=== PATIENT | male | born 1945 | race Caucasian/White ===

== ENCOUNTER 2018-04-02 07:56 | Emergency (ER) | payer OTHER, SELFPAY ==
[2018-04-02 08:10] VITALS: BP 125/54; PULSE 94; RESP 18; TEMP 36.6; O2SAT 93
--- NOTE | 2018-04-02 08:19 | DI.RAD.S_ITS ---
PROCEDURE: XR ACUTE ABDOMEN SERIES INDICATIONS: Abdominal pain TECHNIQUE: One view chest and two views of the abdomen were acquired. COMPARISON: [facility], CT, CT IVP, 09/03/2017, 15:06. FINDINGS: Surgical changes and devices: Prior cholecystectomy. Chest: Lungs are clear. Heart size is normal. No pleural effusions. No pneumoperitoneum. Abdomen: Bowel gas pattern is normal. There are bilateral lower third renal collecting system region suspicious calcifications measuring 4 mm each, but a ureteral stone is not found. Visualized solid organ contours appear normal. Bones: No suspicious bony lesions. IMPRESSION: Mildly reduced inspiratory volume, several small calcifications overlie the expected region of the lower third collecting system of each kidney, each measuring approximately 4 mm in diameter. A ureteral stone is not found but depending on the clinical status followup by CT scanning may become necessary. Dictated by: Kashmir Hernandez M.D. on 04/02/2018 at 8:40 Approved by: Kashmir Hernandez M.D. on 04/02/2018 at 8:41
--- NOTE | 2018-04-02 08:21 | ED.ABDPAIN ---
HPI - Abdominal Pain General Chief Complaint: Nausea/Vomiting/Diarrhea Stated Complaint: FLU LIKE SYMPTOMS Time Seen by Provider: 04/02/18 08:00 Source: patient and family Mode of arrival: ambulatory Limitations: no limitations History of Present Illness HPI narrative: 72-year-old male with extensive medical history presents to the emergency department with 5 days of generalized weakness, nausea, diarrhea as well as subjective fever, fatigue and chest and abdominal pain. He denies provocation or palliation of his symptoms. He denies exposure to bad food, recent travel, antibiotics or ill persons. He denies chest pain or shortness of breath. He denies any recent change in medications or diet. MD complaint: abdominal pain Onset (ago): day(s) Pain Consistency: constant Location: diffuse Severity: moderate Quality: cramping Radiation: none Migration to: no migration Relieving factors: nothing Exacerbating factors: nothing Associated symptoms: nausea, diarrhea and fever Related Data Home Medications Medication Instructions Recorded Confirmed albuterol sulfate 2 puff INHALATION Q4-6H PRN 04/02/18 04/02/18 apixaban 5 mg PO BID 04/02/18 04/02/18 aspirin [Aspirin Low Dose] 81 mg PO DAILY 04/02/18 04/02/18 atorvastatin 40 mg PO DAILY 04/02/18 04/02/18 brimonidine 04/02/18 cholecalciferol (vitamin D3) 1,000 unit PO DAILY 04/02/18 04/02/18 doxazosin 8 mg PO DAILY 04/02/18 04/02/18 duloxetine 60 mg PO DAILY 04/02/18 04/02/18 ferrous sulfate [iron] 325 mg PO DAILY 04/02/18 04/02/18 hydrocodone-acetaminophen [Vicodin 1 tab PO Q4-6H PRN 04/02/18 04/02/18 HP] insulin glargine 04/02/18 lisinopril 20 mg PO BID 04/02/18 04/02/18 lorazepam [Ativan] 0.5 mg PO PRN PRN 04/02/18 04/02/18 metformin 1,000 mg PO BID 04/02/18 04/02/18 pantoprazole [Protonix] 40 mg PO BID 04/02/18 04/02/18 pregabalin [Lyrica] 75 mg PO TID 04/02/18 04/02/18 sucralfate 1 g PO BID 04/02/18 04/02/18 vitamin B complex 1 cap PO DAILY 04/02/18 04/02/18 warfarin 10 mg PO DAILY 04/02/18 04/02/18 Allergies Allergy/AdvReac Type Severity Reaction Status Date / Time latex Allergy Mild Verified 04/02/18 08:19 Review of Systems Review of Systems All systems reviewed & are unremarkable except as noted in HPI and below Constitutional Reports chills, Reports fatigue, Reports fever(s), Denies lethargy and Reports weakness Eyes Denies change in vision, Denies eye discharge, Denies irritation and Denies loss of vision ENT Ears, Nose, Mouth, and Throat: Denies change in voice, Denies neck pain and Denies sore throat Cardiovascular Denies chest pain, Denies irregular heart rhythm, Denies lightheadedness, Denies palpitations, Denies dyspnea, Denies dyspnea on exertion and Denies orthopnea Respiratory Denies cough, Denies dyspnea, Denies dyspnea on exertion and Denies wheezing Gastrointestinal Gastrointestinal: Reports abdominal pain, Denies change in bowel habits, Reports diarrhea, Reports nausea and Denies vomiting Genitourinary Denies hematuria, Denies flank pain, Denies urinary incontinence and Denies urinary urgency Musculoskeletal Denies neck pain Integumentary/Breasts Denies pruritus, Denies erythema, Denies rash and Denies wounds Neurologic Denies confusion, Denies loss of vision and Reports weakness Psychiatric Denies anxiety, Denies confusion, Denies depression, Denies homicidal ideation and Denies suicidal ideation Endocrine Reports fatigue and Denies palpitations Hematologic/Lymphatic Denies easy bruising Allergic/Immunologic Denies wheezing PFSH Medical History Hypercholesteremia (Acute) Hypertension (Acute) Kidney stone (Acute) Glaucoma (Acute) Cataracts, bilateral (Acute) Neck pain (Acute) Pulmonary embolism (Acute) DVT (deep venous thrombosis) (Acute) Arthritis (Acute) Edema (Acute) Umbilical hernia (Acute) Factor 5 Leiden mutation, heterozygous (Acute) Chronic pain (Acute) Diabetes (Acute) Neuropathy (Acute) Fibromyalgia (Acute) Closed left arm fracture (Acute) History of TIAs (Acute) Lipoma of back (Acute) MRSA (methicillin resistant staph aureus) culture positive (Acute) Surgical History H/O hernia repair (Acute) History of facial surgery (Acute) History of surgery on arm (Acute) Hx laparoscopic cholecystectomy (Acute) Social History Smoking Status: Never smoker Exam Narrative Exam Narrative: A 72-year-old male appears generally unwell Initial Vital Signs Initial Vital Signs: Vital Signs Temperature 97.9 F 04/02/18 08:10 Pulse Rate 94 H 04/02/18 08:10 Respiratory Rate 18 04/02/18 08:10 Blood Pressure 125/54 H 04/02/18 08:10 Pulse Oximetry 93 04/02/18 08:10 Const General: cooperative, well developed, in distress and ill appearing Nutritional Appearance: well nourished Orientation: alert, awake, oriented x3 and not confused HENMT Head: normocephalic and atraumatic Ears: external ears normal and TM's normal bilaterally Nose: external nose normal and No nasal discharge Face and sinus: sinuses nontender, face symmetric, no sinus tenderness and No dry mucous membranes Mouth: oral mucosae normal and moist mucous membranes Teeth and gingiva: dentition normal Throat: tonsils normal and uvula midline Eyes General: appearance normal, both eyes and all related structures Eyelids: eyelids normal Conjunctivae: conjunctivae normal Sclera: sclerae normal Pupils: PERRL EOM: EOM intact bilaterally Chest Chest: normal inspection of the chest Resp Effort & Inspection: normal respiratory effort, able to speak in complete sentences, no respiratory distress and no use of accessory muscles Auscultation: clear to auscultation bilaterally, no rales, no rhonchi and no wheezes GI Inspection: distended Palpation: soft, no hepatosplenomegaly, No guarding, No pulsatile mass and No tender Auscultation: normal bowel sounds Back/Spine/Pelvis Back: No CVA tenderness Cervical Spine: cervical ROM normal and No pain with cervical ROM Thoracic/Lumbar Spine: thoracic and lumbar spine normal to inspection Neuro General: alert and awake Cognition: normal cognition Speech: speech normal Motor: muscle tone normal throughout Extrem General: full ROM, no clubbing, cyanosis or edema, no pedal edema and no calf tenderness Psych Appearance: grossly normal Mood: congruent mood Affect: normal affect Course Orders Ordered: ED Orders 04/02/18 08:19 XR acute abdomen series Stat EKG-12 Lead Stat 04/02/18 08:40 Complete Blood Count AUTO DIFF Stat Comprehensive Metabolic Panel Stat Lactate (Lactic Acid) Stat Lipase Stat Procalcitonin Stat Prothrombin Time INR Stat Troponin with CK Cardiac Panel Stat 04/02/18 09:14 Blood Culture Stat 04/02/18 10:22 CT abdomen pelvis w con Stat Discontinued Medications Aspirin (Aspirin Chew) 324 mg PO NOW ONE Stop: 04/02/18 08:19 Last Admin: 04/02/18 09:28 Dose: 324 mg Sodium Chloride (Normal Saline 0.9%) 1,000 mls @ 150 mls/hr IV CONT HEMANTH Last Infusion: 04/02/18 10:05 Dose: 0 mls/hr Admin: 04/02/18 09:00 Dose: 150 mls/hr Reevaluation(s) Reevaluation #1: patient feels tremendous relief after fluids Vital Signs - 8 hr 04/02/18 08:10 04/02/18 09:59 04/02/18 10:30 Temperature 97.9 F Pulse Rate 94 H 81 95 H Respiratory Rate 18 14 21 Blood Pressure 125/54 H Blood Pressure [Left Arm] 116/48 L 119/46 L Pulse Oximetry 93 95 04/02/18 11:02 04/02/18 12:00 04/02/18 12:22 Temperature Pulse Rate 82 68 68 Respiratory Rate 18 Blood Pressure 118/54 L Blood Pressure [Left Arm] 124/51 H 118/54 L Pulse Oximetry 94 95 MDM - Abdominal Pain Differential Diagnosis Differential diagnosis: Likely abdominal pain, acute appendicitis, calculus of kidney, constipation, gastroenteritis and small bowel obstruction Medical Records Attestation: I reviewed the patient's medical records. Lab Data Attestation: I reviewed the patient's lab results. Result diagrams: 04/02/18 08:40 04/02/18 08:40 Lab Results 04/02/18 04/02/18 04/02/18 Range/Units 08:40 08:40 08:40 WBC 5.7 (4.5-11.0) X10^3/uL RBC 5.12 (4.5-5.9) X10^6/uL Hgb 13.2 L (13.5-17.5) g/dL Hct 39.4 L (41-53) % MCV 76.9 L (80-100) fL MCH 25.7 L (26-34) PG MCHC 33.4 (30-36) % RDW 17.2 H (11.6-14.8) % Plt Count 174 (150-400) X10^3/uL Neut % (Auto) 73.5 (50-75) % Lymph % (Auto) 14.2 L (25-40) % [place] % (Auto) 11.1 (3-14) % Eos % (Auto) 1.1 L (2-4) % Baso % (Auto) 0.1 (0-2) % Neut # (Auto) 4200 (6559-0243) /uL PT 26.7 H (10.1-12.7) SECONDS INR 2.5 H (0.9-1.3) Sodium 138 (137-145) mmol/L Potassium 3.9 (3.4-5.1) mmol/L Chloride 101 (98-107) mmol/L Carbon Dioxide 22 (22-32) mmol/L BUN 28 H (9-20) mg/dL Creatinine 1.50 H (0.66-1.25) mg/dL Estimated GFR 46.1 L (>60) mL/min BUN/Creatinine Ratio 18.7 (6-22) Glucose 210 H (80-110) mg/dL Lactate (0.7-2.1) mmol/L Calcium 8.9 (8.4-10.2) mg/dL Total Bilirubin 1.0 (0.2-1.3) mg/dL AST 50 (17-59) IU/L ALT 41 (21-72) IU/L Alkaline Phosphatase 89 (38-126) U/L Total Creatine Kinase 49 L (55-170) U/L Troponin I < 0.012 (0.01-0.034) ng/mL Total Protein 7.1 (6.3-8.2) g/dL Albumin 3.9 (3.5-5.0) g/dL Globulin 3.2 (1.7-4.1) g/dL Albumin/Globulin Ratio 1.2 (1.0-2.8) Lipase 249 (23-300) U/L Procalcitonin (<0.5) ng/mL 04/02/18 04/02/18 Range/Units 08:40 08:40 WBC (4.5-11.0) X10^3/uL RBC (4.5-5.9) X10^6/uL Hgb (13.5-17.5) g/dL Hct (41-53) % MCV (80-100) fL MCH (26-34) PG MCHC (30-36) % RDW (11.6-14.8) % Plt Count (150-400) X10^3/uL Neut % (Auto) (50-75) % Lymph % (Auto) (25-40) % [place] % (Auto) (3-14) % Eos % (Auto) (2-4) % Baso % (Auto) (0-2) % Neut # (Auto) (3662-0756) /uL PT (10.1-12.7) SECONDS INR (0.9-1.3) Sodium (137-145) mmol/L Potassium (3.4-5.1) mmol/L Chloride (98-107) mmol/L Carbon Dioxide (22-32) mmol/L BUN (9-20) mg/dL Creatinine (0.66-1.25) mg/dL Estimated GFR (>60) mL/min BUN/Creatinine Ratio (6-22) Glucose (80-110) mg/dL Lactate 1.4 (0.7-2.1) mmol/L Calcium (8.4-10.2) mg/dL Total Bilirubin (0.2-1.3) mg/dL AST (17-59) IU/L ALT (21-72) IU/L Alkaline Phosphatase (38-126) U/L Total Creatine Kinase (55-170) U/L Troponin I (0.01-0.034) ng/mL Total Protein (6.3-8.2) g/dL Albumin (3.5-5.0) g/dL Globulin (1.7-4.1) g/dL Albumin/Globulin Ratio (1.0-2.8) Lipase (23-300) U/L Procalcitonin 0.38 (<0.5) ng/mL Imaging Data Chest x-ray: Attestation: I personally reviewed and interpreted this imaging study as follows: My impression: NAP Radiologist's impression: PROCEDURE: XR ACUTE ABDOMEN SERIES INDICATIONS: Abdominal pain TECHNIQUE: One view chest and two views of the abdomen were acquired. COMPARISON: [facility], CT, CT IVP, 09/03/2017, 15:06. FINDINGS: Surgical changes and devices: Prior cholecystectomy. Chest: Lungs are clear. Heart size is normal. No pleural effusions. No pneumoperitoneum. Abdomen: Bowel gas pattern is normal. There are bilateral lower third renal collecting system region suspicious calcifications measuring 4 mm each, but a ureteral stone is not found. Visualized solid organ contours appear normal. Bones: No suspicious bony lesions. IMPRESSION: Mildly reduced inspiratory volume, several small calcifications overlie the expected region of the lower third collecting system of each kidney, each measuring approximately 4 mm in diameter. A ureteral stone is not found but depending on the clinical status followup by CT scanning may become necessary. Dictated by: Kashmir Hernandez M.D. on 04/02/2018 at 8:40 Approved by: Kashmir Hernandez M.D. on 04/02/2018 at 8:41 CT scan - abdomen: Radiologist's impression: PROCEDURE: CT ABDOMEN PELVIS W CON INDICATIONS: severe abdominal pain, weakness TECHNIQUE: After the administration of intravenous contrast, 5 mm thick sections acquired from the diaphragm to the symphysis. 5 mm coronal and sagittal reformats were acquired. For radiation dose reduction, the following was used: automated exposure control, adjustment of mA and/or kV according to patient size. COMPARISON: None. FINDINGS: Image quality: Excellent. ABDOMEN: Lung bases: Lung bases are clear except for mild posterior lung base scarring and/or atelectasis.. Heart size is normal. Solid organs: Liver is normal in size and enhancement. Gallbladder has been previously resected. Biliary system is non dilated. Pancreas enhances normally. Spleen is normal in size and enhancement. No adrenal nodules. Kidneys demonstrate normal size and enhancement, without hydronephrosis. A 3 x 4 mm calculus is seen nonobstructive within a posterior calyx of the right mid kidney. More inferiorly within the lower third collecting system of the left kidney there is a calculus or cluster of calculi measuring up to 5 mm in AP dimension and 1.8 cm transverse. A small simple appearing exophytic posterior right renal cortical cyst is present, 1.6 cm in maximal dimension Peritoneum and bowel: Bowel loops demonstrate normal wall thickness and caliber. No free fluid or air. Nodes and vessels: No retroperitoneal or mesenteric adenopathy by size criteria. Aorta and inferior vena cava are normal in size. Miscellaneous: No ventral hernias. PELVIS: Genitourinary: Bladder wall thickness is normal. Miscellaneous: No inguinal hernias or adenopathy. Bones: No suspicious bony lesions. No vertebral body compression fractures. IMPRESSION: Prior cholecystectomy. Mild lung base atelectasis or scarring posteriorly. Within the abdomen note is made of several urinary tract stones the largest of which are present at the lower third collecting system of the left kidney and do not appear obstructed. No ureteral calculus is found. A definite source of current symptoms is not seen. Dictated by: Kashmir Hernandez M.D. on 04/02/2018 at 10:59 Approved by: Kashmir Hernandez M.D. on 04/02/2018 at 11:03 ECG Data Attestation: I personally reviewed and interpreted this ECG as follows: Prior ECG tracings: not available for review Interpretation: Normal sinus rhythm at 89 without signs of ectopy or ischemia. No ST segmental elevations or depressions. No T-wave inversions Discharge Plan Departure Patient Disposition: Home, Self-Care Clinical Impression: Acute dehydration, Abdominal pain Discharge Date/Time: 04/02/18 12:24 Interventions: ED Discharge Assessment Last Done: 04/02/18 12:22 Instructions: Acute Abdominal Pain Activity Restrictions/Additional Instructions: 1. Drink plenty of fluids with frequent small sips. 2. For the next 24 hours a clear liquid diet is advised. After that please employ a brat diet which would include bananas, rice, apples, toast. 3. Please take medications as directed. 4. Please follow-up with your doctor in the next 1-2 days. Call the office for an appointment. 5. Please return to the emergency Department for any worsening or persistent symptoms, such as increasing pain or fever. Prescriptions: No Action lisinopril 20 mg Tablet 20 mg PO BID RF: 0 insulin glargine 100 unit/mL Solution RF: 0 sucralfate 1 gram Tablet 1 g PO BID RF: 0 doxazosin 8 mg Tablet 8 mg PO DAILY RF: 0 metformin 1,000 mg Tablet 1,000 mg PO BID RF: 0 brimonidine 0.2 % Drops RF: 0 albuterol sulfate 90 mcg/actuation Hfa Aerosol Inhaler 2 puff INHALATION Q4-6H PRN (Reason: Shortness Of Breath) RF: 0 cholecalciferol (vitamin D3) 1,000 unit Capsule 1,000 unit PO DAILY RF: 0 apixaban 5 mg Tablet 5 mg PO BID RF: 0 atorvastatin 40 mg Tablet 40 mg PO DAILY RF: 0 warfarin 10 mg Tablet 10 mg PO DAILY RF: 0 aspirin [Aspirin Low Dose] 81 mg Tablet,Delayed Release (Dr/Ec) 81 mg PO DAILY RF: 0 lorazepam [Ativan] 0.5 mg Tablet 0.5 mg PO PRN PRN (Reason: Anxiety) RF: 0 pantoprazole [Protonix] 40 mg Tablet,Delayed Release (Dr/Ec) 40 mg PO BID RF: 0 ferrous sulfate [iron] 325 mg (65 mg iron) Tablet 325 mg PO DAILY RF: 0 vitamin B complex Capsule 1 cap PO DAILY RF: 0 hydrocodone-acetaminophen [Vicodin HP] 10-300 mg Tablet 1 tab PO Q4-6H PRN (Reason: pain) RF: 0 duloxetine 60 mg Capsule,Delayed Release(Dr/Ec) 60 mg PO DAILY RF: 0 pregabalin [Lyrica] 75 mg Capsule 75 mg PO TID RF: 0
[2018-04-02 08:57] LABS: Add Manual Diff / Slide Review NO; Basophils Percent Auto 0.1 % (0-2); Eosinophils Percent Auto 1.1 % (2-4); Hematocrit 39.4 % (41-53); Hemoglobin 13.2 g/dL (13.5-17.5); Lymphocytes Percent Auto 14.2 % (25-40); Mean Corpuscular HGB Conc 33.4 % (30-36); Mean Corpuscular Hemoglobin 25.7 PG (26-34); Mean Corpuscular Volume 76.9 fL (80-100); Monocytes Percent Auto 11.1 % (3-14); Neutrophils Absolute Auto 4200 /uL (3000-5900); Neutrophils Percent Auto 73.5 % (50-75); Platelet Count 174 X10^3/uL (150-400); Red Blood Cell Count 5.12 X10^6/uL (4.5-5.9); Red Cell Distribution Width 17.2 % (11.6-14.8); White Blood Cell Count 5.7 X10^3/uL (4.5-11.0)
[2018-04-02] MEDS: SODIUM CHLORIDE 0.9% 1,000 ML 150 ML IV (09:00)
[2018-04-02 09:05] LABS: INR 2.5 (0.9-1.3); Prothrombin Time 26.7 SECONDS (10.1-12.7)
[2018-04-02 09:09] LABS: Lactate (Lactic Acid) 1.4 mmol/L (0.7-2.1)
[2018-04-02 09:11] LABS: Alanine Aminotransferase 41 IU/L (21-72); Albumin 3.9 g/dL (3.5-5.0); Albumin Globulin Ratio 1.2 (1.0-2.8); Alkaline Phosphatase 89 U/L (38-126); Aspartate Aminotransferase 50 IU/L (17-59); BUN Creatinine Ratio 18.7 (6-22); Blood Urea Nitrogen 28 mg/dL (9-20); Calcium 8.9 mg/dL (8.4-10.2); Carbon Dioxide 22 mmol/L (22-32); Chloride 101 mmol/L (98-107); Creatine Kinase 49 U/L (55-170); Estimated Glomerular Filt Rate 46.1 mL/min (>60); Globulin 3.2 g/dL (1.7-4.1); Glucose 210 mg/dL (80-110); HEMOLYSIS < 15 (0-50); Lipase 249 U/L (23-300); Potassium 3.9 mmol/L (3.4-5.1); Sodium 138 mmol/L (137-145); Total Protein 7.1 g/dL (6.3-8.2)
[2018-04-02 09:25] LABS: Procalcitonin 0.38 ng/mL (<0.5); Troponin I < 0.012 ng/mL (0.01-0.034)
[2018-04-02] MEDS: ASPIRIN 81 MG TAB 324 MG PO (09:28)
[2018-04-02 09:59] VITALS: BP 116/48; PULSE 81; RESP 14; O2SAT 95
--- NOTE | 2018-04-02 10:22 | DI.CT.S_ITS ---
PROCEDURE: CT ABDOMEN PELVIS W CON INDICATIONS: severe abdominal pain, weakness TECHNIQUE: After the administration of intravenous contrast, 5 mm thick sections acquired from the diaphragm to the symphysis. 5 mm coronal and sagittal reformats were acquired. For radiation dose reduction, the following was used: automated exposure control, adjustment of mA and/or kV according to patient size. COMPARISON: None. FINDINGS: Image quality: Excellent. ABDOMEN: Lung bases: Lung bases are clear except for mild posterior lung base scarring and/or atelectasis.. Heart size is normal. Solid organs: Liver is normal in size and enhancement. Gallbladder has been previously resected. Biliary system is non dilated. Pancreas enhances normally. Spleen is normal in size and enhancement. No adrenal nodules. Kidneys demonstrate normal size and enhancement, without hydronephrosis. A 3 x 4 mm calculus is seen nonobstructive within a posterior calyx of the right mid kidney. More inferiorly within the lower third collecting system of the left kidney there is a calculus or cluster of calculi measuring up to 5 mm in AP dimension and 1.8 cm transverse. A small simple appearing exophytic posterior right renal cortical cyst is present, 1.6 cm in maximal dimension Peritoneum and bowel: Bowel loops demonstrate normal wall thickness and caliber. No free fluid or air. Nodes and vessels: No retroperitoneal or mesenteric adenopathy by size criteria. Aorta and inferior vena cava are normal in size. Miscellaneous: No ventral hernias. PELVIS: Genitourinary: Bladder wall thickness is normal. Miscellaneous: No inguinal hernias or adenopathy. Bones: No suspicious bony lesions. No vertebral body compression fractures. IMPRESSION: Prior cholecystectomy. Mild lung base atelectasis or scarring posteriorly. Within the abdomen note is made of several urinary tract stones the largest of which are present at the lower third collecting system of the left kidney and do not appear obstructed. No ureteral calculus is found. A definite source of current symptoms is not seen. Dictated by: Kashmir Hernandez M.D. on 04/02/2018 at 10:59 Approved by: Kashmir Hernandez M.D. on 04/02/2018 at 11:03
[2018-04-02 10:30] VITALS: BP 119/46; PULSE 95; RESP 21
[2018-04-02 11:02] VITALS: BP 124/51; PULSE 82
--- NOTE | 2018-04-02 11:52 | PC.NURSE ---
Up to commode with PASTR[employer]APPER, no urine specimen collected.
[2018-04-02 12:00] VITALS: BP 118/54; PULSE 68; O2SAT 94
[2018-04-02 12:22] VITALS: BP 118/54; PULSE 68; RESP 18; O2SAT 95
== END 2018-04-02 12:24 | disposition home or self-care (01) ==
PROVIDERS: Emergency Provider Emergency Medicine
DX: E86.0 Dehydration (principal); R10.9 Unspecified abdominal pain
CPT/HCPCS: 36591; 74022; 74177; 80053; 82550; 82553; 83605; 83690; 84145; 84484; 85025; 85610; 87040; 93005; 96360; 99283; 99285; Q9967

== ENCOUNTER → 2018-05-28 14:12 | Outpatient (CLI) | payer OTHER, SELFPAY ==
--- NOTE | 2018-05-28 | DI.MRI.S_ITS ---
PROCEDURE: MR LUMBAR SPINE WO CON INDICATIONS: LOW BACK PAIN TECHNIQUE: Noncontrast sagittal T1 spin echo and T2 fast echo, sagittal STIR, axial T1 and T2 fast spin echo through the lumbar spine. In cases with scoliosis, additional coronal T2 fast spin echo may be performed. COMPARISON: None. FINDINGS: Image quality: Excellent. Alignment and Curvature: There is normal bony alignment. Bone Marrow: Marrow is of normal overall signal. Mild L2 compression fracture without acute marrow edema Spinal Cord: Conus medullaris terminates at the L1 level. Visualized cord demonstrates normal signal and size. Paraspinous Soft Tissues: No paravertebral masses. L1-L2: Normal appearance. L2-L3: Broad-based posterior disc bulge bilateral facet arthropathy. There is dorsal epidural lipomatosis and moderate canal stenosis. Moderate left and mild right foraminal narrowing. L3-L4: Broad-based posterior disc bulge and bilateral facet arthropathy. Mild/moderate canal narrowing. Severe left foraminal stenosis. Moderate right foraminal narrowing L4-L5: Broad-based posterior disc bulge and severe bilateral facet arthropathy. There is marked hypertrophic change at the left facet joint. There is severe canal stenosis. Severe left foraminal narrowing. Moderate right foraminal stenosis. L5-S1: Broad-based posterior disc bulge and bilateral facet arthropathy. Mild dorsal epidural lipomatosis and there is moderate to severe canal narrowing. Severe left and moderate right foraminal stenoses. IMPRESSION: Severe multilevel degenerative disc disease with high grade canal stenoses at L4-L5 and L5-S1. Bilateral, diffuse foraminal stenoses, most pronounced at L3-L4 (left greater than right), L4-L5 (left greater than right), and L5-S1 (left greater than right). Dictated by: Martin Garza M.D. on 05/28/2018 at 15:29 Approved by: Martin Garza M.D. on 05/28/2018 at 15:35
== END ==
PROVIDERS: Visit Provider Nurse Practitioner Adult Health
DX: M51.36 Other intervertebral disc degeneration, lumbar region (principal); M51.37 Other intervertebral disc degeneration, lumbosacral region; M48.061 Spinal stenosis, lumbar region without neurogenic claudication; M48.07 Spinal stenosis, lumbosacral region; M54.5 Low back pain
CPT/HCPCS: 72148

== ENCOUNTER → 2018-12-20 11:06 | Outpatient (CLI) | payer OTHER, SELFPAY ==
--- NOTE | 2018-12-20 | DI.CT.S_ITS ---
PROCEDURE: CT LUMBAR SPINE WO CON INDICATIONS: HX L2 COMPRESSION FRACTURE TECHNIQUE: Noncontrast 3 mm thick sections acquired from the T12 level to the sacrum. Sagittal and coronal reformats were constructed. For radiation dose reduction, the following was used: automated exposure control. COMPARISON: [facility], MR, MR LUMBAR SPINE WO CON, 05/28/2018, 14:32. FINDINGS: Image quality: Excellent. Bones: There is normal bony alignment. Chronic L2 compression deformity is stable compared to prior MRI. No acute vertebral body compression fractures. No suspicious lytic or blastic bony lesions. No pars defects. Mild L1-L2, L2-L3, L3-L4, L4-L5 and L5-S1 degenerative disc changes are noted. Severe L4-L5 and L5-S1 facet arthropathy. Severe left L3-L4 facet arthropathy. Moderate L2-L3 facet arthropathy. Moderate right L3-L4 facet arthropathy. There is severe L4-L5 central canal narrowing secondary to disc disease and facet hypertrophy. Moderate to severe left L3-L4, L4-L5 and L5-S1 neural foraminal l narrowing. Moderate right L4-L5 and L5-S1 neural foraminal narrowing. Soft tissues: No retroperitoneal masses or hematomas. Visualized aorta is normal in caliber. IMPRESSION: 1. Chronic L2 compression fracture stable compared to prior MRI. No acute vertebral body compression fractures. 2. Multilevel degenerative disease 3. Multilevel facet arthropathy 4. Severe L4-L5 central canal stenosis. 5. Moderate to severe left L3-L4 neural foraminal narrowing. Moderate right and moderate to severe left L4-L5 and L5-S1 neural foraminal narrowing. Dictated by: Eunice Gray MD, PhD on 12/20/2018 at 16:15 Approved by: Eunice Gray MD, PhD on 12/20/2018 at 16:42
== END ==
PROVIDERS: PCP Nurse Practitioner Adult Health; Visit Provider Nurse Practitioner Adult Health
DX: M51.16 Intervertebral disc disorders with radiculopathy, lumbar region (principal); M48.56XS Collapsed vertebra, not elsewhere classified, lumbar region, sequela of fracture; M47.26 Other spondylosis with radiculopathy, lumbar region; M47.27 Other spondylosis with radiculopathy, lumbosacral region; M48.061 Spinal stenosis, lumbar region without neurogenic claudication; M48.07 Spinal stenosis, lumbosacral region
CPT/HCPCS: 72131

== ENCOUNTER → 2019-06-14 12:52 | Outpatient (CLI) | payer OTHER, SELFPAY ==
--- NOTE | 2019-06-14 | DI.MRI.S_ITS ---
PROCEDURE: MR LUMBAR SPINE WO CON INDICATIONS: LUMBAR STENOSIS TECHNIQUE: Noncontrast sagittal T1 spin echo and T2 fast echo, sagittal STIR, axial T1 and T2 fast spin echo through the lumbar spine. In cases with scoliosis, additional coronal T2 fast spin echo may be performed. COMPARISON: [facility], MR, MR LUMBAR SPINE WO CON, 05/28/2018, 14:32. FINDINGS: Image quality: Excellent. Alignment and Curvature: Straightening of the normal lordotic curvature. Bone Marrow: No acute fracture. Multilevel degenerative endplate sclerosis and spurring. Diffuse facet arthropathy. Chronic appearing Schmorl's node involving the superior endplate of L2. Spinal Cord: Conus medullaris terminates at the L1 level. Visualized cord demonstrates normal signal and size. Paraspinous Soft Tissues: No paravertebral masses. There is nonspecific, dependent posterior subcutaneous soft tissue edema from level of L3-S1 L1-L2: Normal appearance. L2-L3: Minimal broad-based posterior disc bulge and bilateral facet arthropathy. Dorsal epidural lipomatosis and associated moderate canal narrowing. Partial effacement of both lateral recesses with bilaterally symmetric appearance. Mild left foraminal narrowing, which is unchanged since 05/28/18. No definite right foraminal stenosis. L3-L4: Mild central canal narrowing. Partial effacement of both lateral recesses with bilaterally symmetric appearance. Mild right foraminal narrowing. Mild to moderate left foraminal narrowing with minimal nerve root compression in the AP dimension. No interval change L4-L5: Severe canal stenosis. Severe bilateral facet arthropathy. Partial effacement of both lateral recesses, which is asymmetric, left greater than right, unchanged. Mild right foraminal narrowing. Moderate left foraminal stenosis with minimal nerve root compression. No interval change. L5-S1: Dorsal epidural lipomatosis. Bilateral facet arthropathy and broad-based posterior disc bulge. Posterior annular fissure. Moderate canal stenosis. Partial effacement of both lateral recesses with bilaterally symmetric appearance. Moderate left foraminal stenosis with minimal nerve root compression. Mild right foraminal narrowing. No interval change. IMPRESSION: Overall, grossly unchanged examination as detailed above by spinal level. Severe L4-L5 canal stenosis as before. Dictated by: Martin Garza M.D. on 06/14/2019 at 13:53 Approved by: Martin Garza M.D. on 06/14/2019 at 14:04
== END ==
PROVIDERS: PCP Nurse Practitioner Adult Health; Visit Provider Neurological Surgery
DX: M48.061 Spinal stenosis, lumbar region without neurogenic claudication (principal)
CPT/HCPCS: 72148